=== PATIENT | male | born 1985 | race Caucasian/White ===

== ENCOUNTER 2016-12-15 02:38 | Emergency (ER) | payer OTHER ==
[~2016-12-15] VITALS: Ht 185.4 cm; Wt 90.7 kg
[2016-12-15 02:50] VITALS: BP 119/80
[2016-12-15] MEDS ORDERED: IBUPROFEN600 MG ORAL (03:19)
--- NOTE | 2016-12-15 03:20 | Emergency Room Report ---
History of Present Illness General Chief Complaint: Head Injury Source: Patient Present Illness HPI Is a 31-year-old male with a history of diabetes. He has insulin pump. He presents with chief complaint of head injury. He was at [facility] and had a hypoglycemic episode. This occurred 3 PM. He did not know what happened. Does not recall the event. He was told that his blood sugar dropped down to 29. He fell and hit back of his head and then the front. Bystanders said that he had seizure. EMS gave him glucose and he came back to normal. He is worried about concussion because she's having pain in the back of his head. No nausea no vomiting. No fever or chills. Allergies: Uncoded Allergies: CAT (Allergy, Unknown, 12/15/16) Patient History Past Medical History: see triage record, old chart reviewed, DM Past Surgical History: other Pertinent Family History: none Social History: Denies: smoking Immunizations: other Reviewed Nursing Documentation: PMH: Agreed, PSxH: Agreed Nursing Documentation-PMH Past Medical History: No History, Except For Hx Diabetes: Yes - Type 1 Review of Systems Eye: Denies: blurred vision, eye pain ENT: Denies: ear pain, nose congestion, throat swelling Respiratory: Denies: cough, shortness of breath Cardiovascular: Denies: chest pain, palpitations Gastrointestinal: Denies: abdominal pain, diarrhea, nausea, vomiting Musculoskeletal: Denies: back pain, joint pain Skin: Denies: rash Neurological: Denies: headache, numbness Endocrine: Denies: increased thirst, increased urine Hematologic/Lymphatic: Denies: easy bruising All Other Systems: negative except mentioned in HPI Physical Exam Vital Signs Date Time Temp Pulse Resp B/P Pulse Ox O2 Delivery O2 Flow Rate FiO2 12/15/16 02:42 98.1 119/80 95 12/15/16 02:50 88 20 vitals normal Sp02 EP Interpretation: reviewed, normal General Appearance: well appearing, no apparent distress, alert Head: normocephalic, other - Patient has small abrasion to the right forehead. Over the Occipital scalp, There is abrasion of about 3 cm. No hematoma. Eyes: bilateral eye EOMI, bilateral eye PERRL ENT: hearing grossly normal, normal pharynx Neck: full range of motion, supple, no meningismus Respiratory: chest non-tender, lungs clear, normal breath sounds Cardiovascular #1: regular rate, rhythm, no murmur Gastrointestinal: normal bowel sounds, non tender, no mass, no organomegaly, no bruit, non-distended Musculoskeletal: back normal, gait/station normal, normal range of motion Psychiatric: mood/affect normal Skin: warm/dry Medical Decision Making Diagnostic Impression: Primary Impression: Acute head injury Qualified Codes: S09.90XA - Unspecified injury of head, initial encounter ER Course Patient presents with a hypoglycemic episode and head injury. Based on the history, this is not a seizure. His shaking is probably secondary to severe hypoglycemia. CT head is negative. CT/MRI/US Diagnostic Results CT/MRI/US Diagnostic Results : Imaging Test Ordered: CT head Impression negative per radiologist Last Vital Signs Date Time Temp Pulse Resp B/P Pulse Ox O2 Delivery O2 Flow Rate FiO2 12/15/16 02:50 98.1 88 20 119/80 95 Status: improved Disposition: HOME, SELF-CARE Condition: Stable Scripts Ibuprofen* (MOTRIN*) 600 Mg Tablet 600 MG ORAL THREE TIMES A DAY, #20 TAB 0 Refills Prov: PEE FRANCIS M.D. 12/15/16 Patient Instructions: HEAD INJURY, No Wake-Up (Adult) Additional Instructions: Followup with your DrJuly in 7 days. Return if symptom worsen. PEE FRANCIS M.D. December 15, 2016 03:20
[2016-12-15 03:59] VITALS: BP_SYST 119; BP_SYST 123; BP_DIAS 80; BP_DIAS 84
--- NOTE | 2016-12-15 10:23 | Diagnostic Imaging Report ---
Indication: TRAUMA Technique: Continuous helical CT scanning of the head was performed without intravenous contrast material. Axial and coronal 5 mm sections were generated. Radiation dose was minimized using automated exposure control Dose: Total Dose Length Product - DLP [address] Dose Index - CTDIvol(s) 70.38 mGy. Comparison: None Findings: The ventricular system is normal in size and configuration. There is no shift of midline structures. No abnormal extra-axial fluid collections are noted. There is no evidence of intracerebral bleeding. No other abnormal high or low density areas are noted within the brain. The calvarium is intact. Visualized orbits and sinuses are unremarkable. Impression: Normal CT scan of the head without contrast material. This agrees with the preliminary interpretation provided overnight by [facility]. The CT scanner at [facility] is accredited by the [employer] and the scans are performed using protocols designed to limit radiation exposure to as low as reasonably achievable to attain images of sufficient resolution adequate for diagnostic evaluation.
== END 2016-12-15 03:59 | disposition home or self-care (01) ==
LOC: EMR 03:05
DX: S09.90XA Unspecified injury of head, initial encounter (principal); W19.XXXA Unspecified fall, initial encounter; Y93.9 Activity, unspecified; Y99.9 Unspecified external cause status; E10.649 Type 1 diabetes mellitus with hypoglycemia without coma; Z96.41 Presence of insulin pump (external) (internal); Z79.4 Long term (current) use of insulin
CPT/HCPCS: 70450; 99284